=== PATIENT | female | born 1955 | race Hispanic/Latino ===

== ENCOUNTER 2024-01-15 08:11 | Emergency (ER) | payer MEDICARE, OTHER ==
[~2024-01-15] VITALS: Ht 162.6 cm; Wt 105.0 kg
[~2024-01-15 08:11] MED LIST: AMLODIPINE BESYL5 MG PO; ATENOLOL-CHLOR1 EAC1; ATENOLOL50 MG PO; BENICAR20 MG PO; D3-5000125 MCG; LIPITOR20 MG PO; METFORMIN HCL500 MG PO; NEURONTIN300 MG PO; RYBELSUS14 MG; SODIUM CHLORI1000 M2 PO; VASCEPA1 GM; ZETIA10 MG PO
[2024-01-15 08:27] VITALS: TEMP 97.6
[2024-01-15] MEDS: ACETAMINOPHEN 325 MG TAB PO ONE (09:08)
[2024-01-15] MEDS: KETOROLAC TROMETHAMINE 30 MG/ML VIAL IM STA (09:37)
[2024-01-15] MEDS: MIDAZOLAM HCL 2 MG/2 ML VIAL IV STA (12:32)
[2024-01-15] MEDS: FENTANYL CITRATE/PF 100MCG/2 ML INJ IV ONE (12:33)
[2024-01-15] MEDS: FLUMAZENIL 0.1 MG/ML 10 ML VIAL IV ONE (12:33)
[2024-01-15 13:57] VITALS: PULSE 77; RESP 15; O2SAT 96
[2024-01-19] MEDS ORDERED: ULTRAM 50MG50 MG PO (11:53)
== END 2024-01-15 13:57 | disposition home or self-care (01) ==
LOC: FSED 08:18
DX: M25.512 Pain in left shoulder (principal); S43.085A Other dislocation of left shoulder joint, initial encounter; M25.561 Pain in right knee; W01.0XXA Fall on same level from slipping, tripping and stumbling without subsequent striking against object, initial encounter; Y93.01 Activity, walking, marching and hiking; Y92.830 Public park as the place of occurrence of the external cause; E11.65 Type 2 diabetes mellitus with hyperglycemia; E11.40 Type 2 diabetes mellitus with diabetic neuropathy, unspecified; I10 Essential (primary) hypertension; E78.5 Hyperlipidemia, unspecified; E66.9 Obesity, unspecified; Z87.19 Personal history of other diseases of the digestive system
CPT/HCPCS: 23655; 73030; 73562; 80053; 85025; 94760; 96374; 96375; 96376; 99284; J1885; J2250; J3010

== ENCOUNTER 2024-03-09 07:00 | Outpatient (RCR) | payer MEDICARE, OTHER ==
[~2024-03-09 07:00] MED LIST changes: +ULTRAM 50MG50 MG PO
== END 2024-03-11 ==
LOC: PT 07:00
PROVIDERS: ATTEND Specialist
DX: M24.412 Recurrent dislocation, left shoulder (principal)